=== PATIENT | female | born 1990 | race Caucasian/White ===

== ENCOUNTER 2016-11-27 14:30 | Emergency (ER) | payer OTHER, MEDICAID ==
[~2016-11-27] VITALS: Ht 172.7 cm; Wt 83.2 kg
[2016-11-27 14:33] VITALS: BP 112/60; TEMP 98.7
[2016-11-27 15:22] LABS: PH 6 (5-8); URINE APPEARANCE Clear; URINE BACTERIA None Seen /hpf; URINE BILIRUBIN Negative (NEGATIVE); URINE BLOOD Negative (NEGATIVE); URINE COLOR Amber; URINE GLUCOSE Negative (NEGATIVE); URINE KETONE Negative (NEGATIVE); URINE RBC 0-2 /hpf; URINE UROBILINOGEN >=4.0 mg/dL (NEGATIVE); URINE WBC 0-2 /hpf
[2016-11-27] MEDS ORDERED: MACROBID 1100 MG/CAP PO (15:59)
[2016-11-27 16:09] VITALS: PULSE 83
== END 2016-11-27 16:10 | disposition home or self-care (01) ==
LOC: COL.ER 14:30
PROVIDERS: Emergency Medicine
DX: N39.0 Urinary tract infection, site not specified (principal)